=== PATIENT | female | born 1935 | race Caucasian/White ===

== ENCOUNTER 2017-01-31 09:43 | Inpatient (IN) | payer MEDICARE, BC ==
[~2017-01-31] VITALS: Ht 152.4 cm; Wt 54.3 kg
[2017-01-31] VITALS (504 sets, daily range): BP systolic 121–151; BP diastolic 57–87; PULSE 98–118; TEMP 97.4–98.7; O2SAT 55–100
[~2017-01-31 09:43] MED LIST: ANTIVERT 25MG25 MG PO; ASPIRIN 81M81 MG/TA2 PO; COZAAR100 MG PO; DIOVAN HCT PO; FELODIPINE; FELODIPINE PO; FERREX PO; FERROUS SU325 MG/TAB PO; FORTAMET500 MG PO; GLUCOPHAGE500 MG/TAB PO; GLYBURIDE MICRON3 MG PO; GLYNASE PRES-TAB6 MG PO; IRON PO; LESCOL PO; LESCOL XL PO; LISINOPRIL/HCTZ1 TAB PO; LOPRESSOR 550 MG/TAB PO; MAXZIDE-25MG TA1 TAB PO; MECLIZINE; METFORMIN ER500 MG PO; MSM; MSM PO; MYSOLINE 5050 MG/TAB PO; MYSOLINE PO; NORCO 325 MG-51 TAB PO; PLENDIL10 MG; PRAVACHOL 40MG40 MG PO; PRILOSEC; SYNTHROID0.05 MG/TA PO; TOPROL XL100 MG PO; TOPROL XL50 MG PO; VITAMIN B 12 PO; VITAMIN D31000 IU PO; ZOCOR40 MG PO; ZYRTEC 10MG PO; ZYRTEC PO; [UNRECOGNIZED DRUG - OTHER]; [UNRECOGNIZED DRUG - OTHER]; [UNRECOGNIZED DRUG - OTHER] PO
[2017-01-31 10:31] LABS: ANION GAP 20 mmol/L (7-16); BLOOD UREA NITROGEN 19 mg/dL (7-17); CALCIUM 8.5 mg/dL (8.4-10.2); CARBON DIOXIDE 19 mmol/L (22-30); CHLORIDE 99 mmol/L (98-107); GLUCOSE 142 mg/dL (74-106); LIPASE 21 U/L (23-300); POTASSIUM 4.5 mmol/L (3.4-5.0); SODIUM 139 mmol/L (137-145)
[2017-01-31 10:34] LABS: ACETAMINOPHEN < 10 ug/mL (10-30); C-REACTIVE PROTEIN < 0.5 mg/dL (0.0-0.9); SALICYLATE < 1.0 mg/dL
[2017-01-31 11:03] LABS: BASO % 0.3 % (0.0-2.0); EOS # 0.1 (0.0-0.7); EOS % 0.7 % (0-4.0); GRAN # 8.3 (1.4-6.5); GRAN % 72.7 % (42.2-75.2); LYMPH # 2.4 (1.2-3.4); LYMPH % 20.7 % (20.0-51.0); MEAN CELL VOLUME 98 fl (80.0-100.0); MEAN CORPUSCULAR HGB CONC 32 g/dl (33.0-37.0); MEAN PLATELET VOLUME 9.9 fl (7.4-10.4); MONO # 0.6 (0.1-0.6); PLATELET COUNT 173 K/mm3 (130-400); RED BLOOD COUNT 3.37 M/mm3 (4.10-5.30); REDCELL DISTRIBUTION WIDTH-CV 13.2 % (11.5-14.5); WHITE BLOOD COUNT 11.4 K/mm3 (4.8-10.8)
[2017-01-31 11:06] LABS: HEMOGLOBIN 10.5 g/dl (12.5-16.0); MEAN CORPUSCULAR HEMOGLOBIN 31 pg (27.0-31.0)
[2017-01-31] MEDS ORDERED: AMARYL 2MG T2 MG/TAB PO (11:06)
[2017-01-31] MEDS ORDERED: TAMOXIFEN CITRA20 MG PO (11:18)
[2017-01-31 12:04] LABS: ERYTHROCYTE SEDIMENTATION RATE 6 mm/hr (0-30)
[2017-01-31 12:15] LABS: AMPHETAMINE URINE NEGATIVE; BARBITURATES URINE NEGATIVE; BENZODIAZEPINES URINE NEGATIVE; BUPRENORPHINE URINE NEGATIVE; METHADONE URINE NEGATIVE; OPIATES URINE NEGATIVE; OXYCODONE URINE NEGATIVE; PHENCYCLIDINE URINE NEGATIVE; PROPOXYPHENE URINE NEGATIVE; THC CANNABINOIDS URINE NEGATIVE
[2017-01-31 12:17] LABS: PH 6 (5-8); URINE APPEARANCE Cloudy; URINE BACTERIA Rare /hpf; URINE BILIRUBIN Negative (NEGATIVE); URINE BLOOD Negative (NEGATIVE); URINE COLOR Yellow; URINE GLUCOSE Negative (NEGATIVE); URINE KETONE Trace (NEGATIVE); URINE RBC 0-2 /hpf; URINE UROBILINOGEN Negative (NEGATIVE)
[2017-01-31 12:19] LABS: URINE WBC 20-50 /hpf
[2017-01-31 14:18] LABS: CEREBROSPINAL TUBE #4; CSF APPEARANCE CLEAR; CSF COLOR COLORLESS
[2017-01-31] MEDS ORDERED: SINEMET 25/101 UDTAB PO (15:09)
[2017-01-31] MEDS ORDERED: GLUCOPHAGE500 MG/TAB PO (15:48)
[2017-01-31] MEDS ORDERED: FERROUS SU325 MG/TAB PO (15:49)
[2017-01-31 16:07] LABS: PROLACTIN 32.4 ng/mL (3.0-18.6)
[2017-01-31 18:19] LABS: BILIRUBIN,TOTAL 0.5 mg/dL (0.0-1.0); CALCIUM 7.2 mg/dL (8.4-10.2); CREATININE, serum 1.23 mg/dL (0.52-1.25); POTASSIUM 3.9 mmol/L (3.4-5.0); TOTAL PROTEIN 5.3 gm/dL (6.4-8.2)
[2017-01-31 18:31] LABS: TROPONIN-I 0.928 ng/mL (0.000-0.034)
[2017-02-01] VITALS (312 sets, daily range): BP systolic 117–159; BP diastolic 51–91; PULSE 89–106; TEMP 96.9–98.3; O2SAT 67–100
[2017-02-01 06:01] LABS: BASO # 0.1 (0.0-0.2); BASO % 0.6 % (0.0-2.0); EOS # 0.1 (0.0-0.7); EOS % 0.7 % (0-4.0); GRAN # 9.3 (1.4-6.5); GRAN % 71.8 % (42.2-75.2); LYMPH # 2.4 (1.2-3.4); LYMPH % 18.3 % (20.0-51.0); MEAN CELL VOLUME 99 fl (80.0-100.0); MEAN CORPUSCULAR HGB CONC 32 g/dl (33.0-37.0); MEAN PLATELET VOLUME 9.7 fl (7.4-10.4); MONO # 1.1 (0.1-0.6); MONO % 8.1 % (1.7-9.3); PLATELET COUNT 175 K/mm3 (130-400); REDCELL DISTRIBUTION WIDTH-CV 13.4 % (11.5-14.5); WHITE BLOOD COUNT 12.9 K/mm3 (4.8-10.8)
[2017-02-01 06:04] LABS: HEMATOCRIT 32.5 % (37.0-47.0); HEMOGLOBIN 10.3 g/dl (12.5-16.0); MEAN CORPUSCULAR HEMOGLOBIN 31 pg (27.0-31.0)
[2017-02-01 06:15] LABS: CALCIUM 7.8 mg/dL (8.4-10.2); CREATININE, serum 1.18 mg/dL (0.52-1.25); MAGNESIUM 1.3 mg/dL (1.6-2.3); POTASSIUM 3.7 mmol/L (3.4-5.0)
[2017-02-01 06:28] LABS: TROPONIN-I 0.586 ng/mL (0.000-0.034)
[2017-02-02 00:19] VITALS: BP 152/66; PULSE 105; TEMP 98.5
[2017-02-02 04:59] VITALS: BP 143/70; PULSE 110; TEMP 98.2
[2017-02-02 07:05] LABS: BASO % 0.3 % (0.0-2.0); EOS # 0.2 (0.0-0.7); EOS % 1.4 % (0-4.0); GRAN % 74.5 % (42.2-75.2); LYMPH # 1.7 (1.2-3.4); LYMPH % 14.2 % (20.0-51.0); MEAN CELL VOLUME 99 fl (80.0-100.0); MEAN CORPUSCULAR HGB CONC 32 g/dl (33.0-37.0); MEAN PLATELET VOLUME 10.1 fl (7.4-10.4); MONO # 1.1 (0.1-0.6); MONO % 9.2 % (1.7-9.3); PLATELET COUNT 187 K/mm3 (130-400); RED BLOOD COUNT 3.38 M/mm3 (4.10-5.30); REDCELL DISTRIBUTION WIDTH-CV 13.6 % (11.5-14.5); WHITE BLOOD COUNT 12.1 K/mm3 (4.8-10.8)
[2017-02-02 07:06] LABS: HEMATOCRIT 33.3 % (37.0-47.0); HEMOGLOBIN 10.5 g/dl (12.5-16.0); MEAN CORPUSCULAR HEMOGLOBIN 31 pg (27.0-31.0)
[2017-02-02 07:59] VITALS: BP 153/69; PULSE 100; TEMP 98.4; TEMP 9834
[2017-02-02 12:05] VITALS: BP 160/66; PULSE 89; TEMP 98.7
[2017-02-02 15:36] VITALS: BP 158/71; PULSE 95; TEMP 98.4
[2017-02-02 23:03] VITALS: BP 154/79; PULSE 98; TEMP 98
[2017-02-03] VITALS (12 sets, daily range): BP systolic 124–181; BP diastolic 60–93; PULSE 86–125; TEMP 97.9–98.8
[2017-02-03 07:52] LABS: MEAN CELL VOLUME 96 fl (80.0-100.0); MEAN CORPUSCULAR HGB CONC 33 g/dl (33.0-37.0); MEAN PLATELET VOLUME 10.3 fl (7.4-10.4); PLATELET COUNT 193 K/mm3 (130-400); RED BLOOD COUNT 3.75 M/mm3 (4.10-5.30); REDCELL DISTRIBUTION WIDTH-CV 13.2 % (11.5-14.5)
[2017-02-03 07:55] LABS: ADD PATHOLOGY DIFF REVIEW NO; HEMATOCRIT 35.9 % (37.0-47.0); HEMOGLOBIN 11.8 g/dl (12.5-16.0); MEAN CORPUSCULAR HEMOGLOBIN 31 pg (27.0-31.0)
[2017-02-03 08:09] LABS: CALCIUM 8.9 mg/dL (8.4-10.2); CREATININE, serum 1.29 mg/dL (0.52-1.25); MAGNESIUM 2.3 mg/dL (1.6-2.3)
[2017-02-03 08:22] LABS: POTASSIUM 3.5 mmol/L (3.4-5.0)
[2017-02-03 08:55] LABS: ANISOCYTOSIS 1+; BAND 7 % (0-10); NEUTROPHILS 69 % (42.0-75.2); PLATELET ESTIMATE NORMAL (NORMAL); TOTAL CELLS COUNTED 100
[2017-02-04 08:30] VITALS: BP 138/59; PULSE 95; TEMP 98
[2017-02-04 08:52] LABS: BASO # 0.1 (0.0-0.2); BASO % 0.3 % (0.0-2.0); EOS # 0.1 (0.0-0.7); GRAN # 11.2 (1.4-6.5); GRAN % 77.4 % (42.2-75.2); LYMPH # 1.8 (1.2-3.4); LYMPH % 12.5 % (20.0-51.0); MEAN CELL VOLUME 98 fl (80.0-100.0); MEAN CORPUSCULAR HGB CONC 32 g/dl (33.0-37.0); MEAN PLATELET VOLUME 10.5 fl (7.4-10.4); MONO # 1.2 (0.1-0.6); MONO % 8.2 % (1.7-9.3); PLATELET COUNT 208 K/mm3 (130-400); RED BLOOD COUNT 3.72 M/mm3 (4.10-5.30); REDCELL DISTRIBUTION WIDTH-CV 13.3 % (11.5-14.5); WHITE BLOOD COUNT 14.5 K/mm3 (4.8-10.8)
[2017-02-04 08:54] LABS: HEMATOCRIT 36.4 % (37.0-47.0); HEMOGLOBIN 11.5 g/dl (12.5-16.0); MEAN CORPUSCULAR HEMOGLOBIN 31 pg (27.0-31.0)
[2017-02-04 09:05] LABS: CALCIUM 8.9 mg/dL (8.4-10.2); CREATININE, serum 1.38 mg/dL (0.52-1.25); MAGNESIUM 2.3 mg/dL (1.6-2.3); POTASSIUM 3.5 mmol/L (3.4-5.0)
[2017-02-04] MEDS ORDERED: OMNICEF 300MG300 MG PO (10:35)
[2017-02-04] MEDS ORDERED: KEPPRA 500MG500 MG PO (10:36)
[2017-02-04] MEDS ORDERED: MAG-OX 400400 MG/TAB PO (10:37)
[2017-02-04 10:55] VITALS: BP 132/56; PULSE 87; TEMP 98.6
[2017-02-04 11:00] VITALS: BP 132/56; PULSE 87; TEMP 98.6
== END 2017-02-04 13:17 | DRG 100 ==
LOC: COL.ER 09:43 → MEDICAL 11:25 → ICU 11:25 → MEDICAL 02-01 15:47
PROVIDERS: Emergency Medicine; Internal Medicine; Internal Medicine Cardiovascular Disease; Physician Assistant
PROC: 009U3ZX Drainage of Spinal Canal, Percutaneous Approach, Diagnostic (ICD-10-PCS; principal; 2017-01-31)
DX: R56.9 Unspecified convulsions (principal); J18.9 Pneumonia, unspecified organism; I21.4 Non-ST elevation (NSTEMI) myocardial infarction; N39.0 Urinary tract infection, site not specified; I16.9 Hypertensive crisis, unspecified; E83.42 Hypomagnesemia; G20 Parkinson's disease; E11.9 Type 2 diabetes mellitus without complications; Z85.3 Personal history of malignant neoplasm of breast; B96.20 Unspecified Escherichia coli [E. coli] as the cause of diseases classified elsewhere
CPT/HCPCS: 99223-AI; 99232-AI; 99233-AI; 99239; A4315; A9284; A9502; C9113; J0456; J0692; J0696; J1630; J2060; J2543; J2785; J3475; J7030; J7050

== ENCOUNTER → 2017-04-27 | Outpatient (CLI) | payer MEDICARE, BC ==
[~2017-04-27] MED LIST changes: +AMARYL 2MG T2 MG/TAB PO; +KEPPRA 500MG500 MG PO; +MAG-OX 400400 MG/TAB PO; +OMNICEF 300MG300 MG PO; +SINEMET 25/101 UDTAB PO; +TAMOXIFEN CITRA20 MG PO
== END ==
LOC: MC.RAD 11:18
DX: Z12.31 Encounter for screening mammogram for malignant neoplasm of breast (principal)

== ENCOUNTER → 2017-05-06 | Outpatient (CLI) | payer MEDICARE, BC | LOC: SUN.DIA 08:58 | DX: E11.21 Type 2 diabetes mellitus with diabetic nephropathy (principal); E78.5 Hyperlipidemia, unspecified; I10 Essential (primary) hypertension; E03.9 Hypothyroidism, unspecified; Z68.21 Body mass index [BMI] 21.0-21.9, adult; Z71.3 Dietary counseling and surveillance ==

== ENCOUNTER → 2017-06-10 | Outpatient (CLI) | payer MEDICARE, BC | LOC: SUN.DIA 09:10 | DX: E11.21 Type 2 diabetes mellitus with diabetic nephropathy (principal); E78.5 Hyperlipidemia, unspecified; I10 Essential (primary) hypertension; E03.9 Hypothyroidism, unspecified; Z71.3 Dietary counseling and surveillance ==

== ENCOUNTER → 2017-09-22 | Outpatient (CLI) | payer MEDICARE, BC | LOC: SUN.DIA 10:09 | DX: E11.21 Type 2 diabetes mellitus with diabetic nephropathy (principal); E78.5 Hyperlipidemia, unspecified; I10 Essential (primary) hypertension; E03.9 Hypothyroidism, unspecified; Z71.3 Dietary counseling and surveillance ==

== ENCOUNTER → 2018-01-19 | Outpatient (CLI) | payer MEDICARE, BC | LOC: SUN.DIA 10:05 | DX: E11.21 Type 2 diabetes mellitus with diabetic nephropathy (principal); E78.5 Hyperlipidemia, unspecified; I10 Essential (primary) hypertension; E03.9 Hypothyroidism, unspecified; Z71.3 Dietary counseling and surveillance ==

== ENCOUNTER → 2018-06-10 | Outpatient (CLI) | payer MEDICARE, BC | LOC: MC.RAD 15:56 | DX: Z12.31 Encounter for screening mammogram for malignant neoplasm of breast (principal) ==

== ENCOUNTER → 2019-08-05 | Outpatient (CLI) | payer MEDICARE, BC | LOC: MC.RAD 09:35 | DX: Z12.31 Encounter for screening mammogram for malignant neoplasm of breast (principal) ==

== ENCOUNTER 2020-01-15 15:15 | Emergency (ER) | payer MEDICARE, BC ==
[~2020-01-15] VITALS: Ht 152.4 cm; Wt 46.8 kg
[~2020-01-15 15:15] MED LIST changes: +ARICEPT10 MG PO; +FLAGYL500 MG PO; +HCTZ 25MG TAB25 MG PO; +LEXAPRO 10MG10 MG PO; +MYRBETR25MG PO; +PROBIOTIC ACID1 EAC3 PO; +REQUIP XL4 MG PO
[2020-01-15 16:23] LABS: HEMOGLOBIN 11.3 g/dl (12.5-16.0); MEAN CELL VOLUME 97 fl (80.0-100.0); MEAN CORPUSCULAR HEMOGLOBIN 31 pg (27.0-31.0); MEAN CORPUSCULAR HGB CONC 33 g/dl (33.0-37.0); MEAN PLATELET VOLUME 9.4 fl (7.4-10.4); PLATELET COUNT 301 K/mm3 (130-400); REDCELL DISTRIBUTION WIDTH-CV 13.9 % (11.5-14.5)
[2020-01-15 16:26] LABS: HEMATOCRIT 34.8 % (37.0-47.0)
[2020-01-15 16:27] LABS: ALANINE AMINOTRANSFERASE 5 U/L (4-34); ALBUMIN 3.3 gm/dL (3.5-5.0); ALKALINE PHOSPHATASE 108 U/L (50-136); ANION GAP 9 mmol/L (7-16); AST,SGOT 22 U/L (15-37); BILIRUBIN,TOTAL 0.6 mg/dL (0.0-1.0); BLOOD UREA NITROGEN 30 mg/dL (7-17); CALCIUM 8.1 mg/dL (8.4-10.2); CARBON DIOXIDE 29 mmol/L (22-30); CHLORIDE 94 mmol/L (98-107); CREATININE, serum 1.39 (0.52-1.25); GLUCOSE 146 mg/dL (74-106); SODIUM 131 mmol/L (137-145); TOTAL PROTEIN 6.4 gm/dL (6.4-8.2)
[2020-01-15 16:29] LABS: LIPASE < 10 U/L (23-300); POTASSIUM 2.7 mmol/L (3.4-5.0)
[2020-01-15] MEDS ORDERED: TOPROL XL100 MG PO (18:01)
[2020-01-15 18:11] LABS: BAND 28 % (0-10); LYMPHOCYTE 4 % (20.0-51.0); NEUTROPHILS 63 % (42.0-75.2); PLATELET ESTIMATE NORMAL (NORMAL)
[2020-01-15 19:39] VITALS: BP 122/70; PULSE 82; TEMP 99.1
[2020-01-15 20:28] LABS: CLOSTRIDIUM DIFF A/B POS; CLOSTRIDIUM DIFF A/B INTERP Toxigenic C.diff POS
== END 2020-01-15 19:39 | disposition short-term general hospital (02) ==
LOC: COL.ER 15:15
PROVIDERS: Family Medicine
DX: R19.7 Diarrhea, unspecified (principal); D72.829 Elevated white blood cell count, unspecified; E11.9 Type 2 diabetes mellitus without complications; I10 Essential (primary) hypertension; G40.909 Epilepsy, unspecified, not intractable, without status epilepticus; Z79.82 Long term (current) use of aspirin; Z79.84 Long term (current) use of oral hypoglycemic drugs
CPT/HCPCS: J2405; J3370; J3480; J7050; J7120

== ENCOUNTER → 2020-08-30 | Outpatient (CLI) | payer MEDICARE, BC | LOC: MC.RAD 08-15 13:00 | DX: C50.512 Malignant neoplasm of lower-outer quadrant of left female breast (principal); N63.10 Unspecified lump in the right breast, unspecified quadrant; Z92.3 Personal history of irradiation ==

== ENCOUNTER → 2021-12-31 | Outpatient (CLI) | payer MEDICARE, BC | LOC: MC.RAD 09:09 | DX: Z12.31 Encounter for screening mammogram for malignant neoplasm of breast (principal) ==